=== PATIENT | female | born 1930 | race American Indian/Alaskan Native ===

== ENCOUNTER 2020-10-13 07:39 | Inpatient (IN) ==
[2020-10-13] MEDS ORDERED: IOPAMIDOL 100 ML BOTTLE IV ONE ×2 (07:40→20:43)
[2020-10-13] MEDS ORDERED: DILTIAZEM 25 MG/5 ML VIAL IV ONE (08:05)
[2020-10-13] MEDS ORDERED: FUROSEMIDE 20 MG/2 ML VIAL IV ONE (08:11)
[2020-10-13] MEDS ORDERED: DILTIAZEM 125 MG in 0.9 % SODIUM CHLORIDE 100 ML IV SCH (08:15)
[2020-10-13] MEDS ORDERED: ENOXAPARIN 100 MG/ML SYRINGE SQ SCH (08:15)
--- NOTE | 2020-10-13 08:24 | Emergency Department Note ---
Arrhythmia/Palpitations HPI General Chief Complaint: Arrhythmia/Palpitations Stated Complaint: fast heart rate,short of breath Time Seen by Provider: 10/13/20 07:45 Mode of arrival: ambulatory History of Present Illness HPI Narrative: Narrative: Patient presents to room T8 for evaluation of chest tightness, shortness of breath and rapid heart rate. The patient does report a past medical history of atrial fibrillation. The patient was seen in the emergency department approximately 8 hours ago at which time she was diagnosed with atrial fibrillation with rapid ventricular response as well as pulmonary edema on chest x-ray. She was given IV diltiazem and her symptoms improved. The patient also had apixaban and digoxin ordered but did not receive these. At that time the patient refused admission to the hospital. She now returns with chest tightness and shortness of breath and a rapid heart rate. The symptoms are constant. She denies any exacerbating or alleviating factors. She is now willing to be admitted to the hospital Related Data Home Medications Medication Instructions Recorded Confirmed acetaminophen 325 mg PO Q4-6HP PRN 05/10/15 10/13/20 alendronate 70 mg PO WEEKLY 05/10/15 10/13/20 aspirin 81 mg PO 2-3XW PRN 05/10/15 10/13/20 atorvastatin 20 mg PO HS 05/10/15 10/13/20 ergocalciferol (vitamin D2) 50,000 unit PO Q14D 06/08/18 10/13/20 clopidogrel 75 mg tablet 75 mg PO QDAY 08/06/19 10/13/20 torsemide 20 mg tablet 10 mg PO QDAY tab 08/06/19 10/13/20 multivitamin 1 tab PO QDAY 09/12/19 10/13/20 carvedilol 3.125 mg PO BID 10/13/20 10/13/20 insulin detemir U-100 [Levemir 15 unit SUBCUT QPM 10/13/20 10/13/20 FlexTouch U-100 Insuln] insulin detemir U-100 [Levemir 22 unit SUBCUT AC 10/13/20 10/13/20 FlexTouch U-100 Insuln] Previous Rx's Medication Instructions Recorded apixaban [Eliquis] 2.5 mg PO BID #30 tab 10/13/20 Allergies Allergy/AdvReac Type Severity Reaction Status Date / Time diphenhydramine Allergy Unknown Unknown Verified 10/13/20 13:43 gemfibrozil Allergy Unknown Unknown Verified 10/13/20 13:43 lisinopril Allergy Unknown Unknown Verified 10/13/20 13:43 pioglitazone Allergy Unknown Unknown Verified 10/13/20 13:43 pseudoephedrine Allergy Unknown Unknown Verified 10/13/20 13:43 sertraline AdvReac Unknown Unknown Verified 10/13/20 13:43 Bandaid AdvReac Mild Redness of Uncoded 10/13/20 13:44 Skin Review of Systems ROS ROS Narrative: Narrative: All systems ED: reviewed and negative except as stated. [facility] Narrative Patient History Narrative: Narrative: Medical/Surgical/Family History All Active Problems (Updated 10/13/20 @ 09:09 by Bry Rothman MD) Cellulitis of great toe, right (Acute) Diabetic skin ulcer associated with type 2 diabetes mellitus (Acute) Atrial fibrillation with RVR (Acute) Chest pain (Acute) Acute dyspnea (Acute) Peripheral vascular disease of foot (Chronic) Heart attack (Chronic ~08/08/97) Breast cancer (Chronic ~08/08/79) Cellulitis of right ankle (Chronic) Weight loss (Chronic) Non-healing surgical wound (Chronic) Hypoglycemia associated with type 2 diabetes mellitus (Chronic) Anemia due to blood loss (Chronic) MRSA (methicillin resistant staph aureus) culture positive (Chronic) Foot ulcer (Chronic) Osteoporosis (Chronic) Seasonal allergies (Chronic) Chronic congestive heart failure (Chronic) Peripheral arterial occlusive disease (Chronic) Poor short term memory (Chronic) Hematuria (Chronic) Lumbar spondylosis (Chronic) Onychomycosis (Chronic) Hyperlipemia (Chronic) Coronary atherosclerosis (Chronic) Proliferative diabetic retinopathy (Chronic) Renal hypertension (Chronic) Disorder of cardiac function (Chronic) CKD (chronic kidney disease), stage III (Chronic) Chronic pain (Chronic) Benign essential hypertension (Chronic) Vitamin D deficiency (Chronic) Stress incontinence (Chronic) Wound of left foot (Chronic) Shoulder pain (Chronic) Lumbago with sciatica (Chronic) Hypertensive disorder (Chronic) Cardiomyopathy (Chronic) PVD (peripheral vascular disease) (Chronic) Vitamin B 12 deficiency (Chronic) Pulmonary mass (Chronic) Diabetic neuropathy (Chronic) Bilateral carotid bruits (Chronic) Ischemic heart disease (Chronic) Diabetes mellitus, type II (Chronic) Heart & renal disease, 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) Gastroenteritis (Chronic) Hyponatremia (Chronic) CHF (congestive heart failure) (Chronic) Fall (Chronic) Skin tear of elbow without complication (Chronic) Medical History (Updated 10/13/20 @ 09:09 by Bry Rothman MD) Anemia due to blood loss Benign essential hypertension Bilateral carotid bruits Breast cancer (~08/08/79) Cardiomyopathy Cellulitis of right ankle Chronic congestive heart failure Chronic pain CKD (chronic kidney disease), stage III Coronary atherosclerosis Diabetes mellitus, type II Diabetic neuropathy Disorder of cardiac function Foot ulcer Gastroenteritis Heart & renal disease, hypertensive benign with chronic kidney disease Heart attack (~08/08/97) Hematuria Hyperlipemia Hypertensive disorder Hypoglycemia associated with type 2 diabetes mellitus Ischemic heart disease Lumbago with sciatica Lumbar spondylosis MRSA (methicillin resistant staph aureus) culture positive Non-healing surgical wound Onychomycosis Osteoporosis Peripheral arterial occlusive disease Peripheral vascular disease of foot Poor short term memory Proliferative diabetic retinopathy Pulmonary mass PVD (peripheral vascular disease) Renal hypertension Seasonal allergies Shoulder pain Stress incontinence Vitamin B 12 deficiency Vitamin D deficiency Weight loss Wound of left foot Surgical History (Updated 10/13/20 @ 15:16 by Laura Hobson MD) Hammer toe (~03/23/12) Right History of breast reconstruction (~08/08/11) History of cataract surgery Bilaterally History of cholecystectomy (~08/08/06) History of coronary artery bypass surgery History of femoropopliteal bypass Bilateral History of heart bypass surgery (~08/08/03) 5X History of mastectomy (~08/08/99) Right History of tonsillectomy Trigger finger (~09/14/11) 4th Right Family History Mother Diabetes Stroke Father Heart disease Grandmother Cancer Grandfather Cancer Other No pertinent family history Social History Smoking Status: Never smoker Exam Narrative Narrative: Narrative: General General appearance: Present alert and in no apparent distress Head Head: Present atraumatic, normocephalic and normal inspection Eye Eye: Present normal appearance and EOMI; Absent conjunctival injection ENT ENT: Present normal exam and mucous membranes moist Neck Neck: Present normal inspection and trachea midline Respiratory Respiratory: Present normal lung sounds bilaterally; Absent respiratory distress Cardiovascular Cardiovascular: Present tachycardia, irregular rhythm and normal heart sounds Adbominal Abdominal: Present soft; Absent distention, tenderness, guarding and rebound Extremities Extremities: Present normal inspection; Absent tenderness Back Back: Present normal inspection; Absent tenderness Neurological Neurological: Present alert, oriented X3 and CN II-XII intact; Absent motor sensory deficit Psychiatric Psychiatric: Present normal affect and normal mood Skin Skin: Present warm (WNL) and dry; Absent rash Course Vital Signs Vital signs: Vital Signs Temperature 96.0 F L 10/13/20 07:40 Pulse Rate 110 H 10/13/20 07:40 Respiratory Rate 26 H 10/13/20 07:40 Blood Pressure 153/117 10/13/20 07:40 Pulse Oximetry (%) 98 10/13/20 07:40 Temperature 97.2 F 10/13/20 12:31 Pulse Rate 82 10/13/20 16:01 Respiratory Rate 20 10/13/20 16:01 Blood Pressure 158/91 10/13/20 16:01 Pulse Oximetry (%) 92 10/13/20 16:01 [facility] MDM Narrative Medical decision making narrative: Narrative: Lab Data Lab results reviewed: Yes I reviewed the patient's lab results. Result diagrams: 10/13/20 19:41 10/13/20 19:40 Labs: Lab Results 10/13/20 10/13/20 10/13/20 Range/Units 08:06 08:06 08:06 WBC 11.4 H (4.5-11.0) K/mcL RBC 4.60 (4.00-5.20) M/mcL Hgb 13.1 (12.0-15.0) g/dL Hct 39.1 (36.0-48.0) % POC Hct 43 (36-48) % MCV 85.0 (80.0-100.0) fL MCH 28.5 (26.0-34.0) pg MCHC 33.5 (31.0-36.0) g/dL RDW 13.2 (11.5-14.5) % Plt Count 273 (140-440) K/mcL MPV 10.0 (7.4-10.4) fL Neut % (Auto) 92.3 H (38.0-78.0) % Lymph % (Auto) 4.8 L (15.0-49.0) % [place] % (Auto) 2.7 (1.0-12.0) % Eos % (Auto) 0 (0.0-7.0) % Baso % (Auto) 0.2 (0.0-2.0) % Lymph # (Auto) 0.55 L (1.50-4.80) K/mcL [place] # (Auto) 0.31 (0.10-0.90) K/mcL Eos # (Auto) 0 (0.00-0.70) K/mcL Baso # (Auto) 0.02 (0.00-0.20) K/mcL Absolute Neutrophils 10.47 H (1.80-8.00) K/mcL POC Sodium 120 L (133-145) mEq/L POC Potassium 4.7 (3.3-5.1) mEql/L POC Chloride 89 L (96-108) mEq/L POC Total CO2 20 L (22-30) mmol/L POC BUN 36 H (6-20) mg/dL POC Creatinine 1.4 H (0.6-1.2) mg/dL POC Glucose 299 H (70-105) mg/dL POC WB Ioniz Calcium 1.09 L (1.16-1.32) mmEq/L Troponin T 0.01 (<0.03) ng/mL TSH (0.27-5.01) uIU/mL 10/13/20 Range/Units 08:06 WBC (4.5-11.0) K/mcL RBC (4.00-5.20) M/mcL Hgb (12.0-15.0) g/dL Hct (36.0-48.0) % POC Hct (36-48) % MCV (80.0-100.0) fL MCH (26.0-34.0) pg MCHC (31.0-36.0) g/dL RDW (11.5-14.5) % Plt Count (140-440) K/mcL MPV (7.4-10.4) fL Neut % (Auto) (38.0-78.0) % Lymph % (Auto) (15.0-49.0) % [place] % (Auto) (1.0-12.0) % Eos % (Auto) (0.0-7.0) % Baso % (Auto) (0.0-2.0) % Lymph # (Auto) (1.50-4.80) K/mcL [place] # (Auto) (0.10-0.90) K/mcL Eos # (Auto) (0.00-0.70) K/mcL Baso # (Auto) (0.00-0.20) K/mcL Absolute Neutrophils (1.80-8.00) K/mcL POC Sodium (133-145) mEq/L POC Potassium (3.3-5.1) mEql/L POC Chloride (96-108) mEq/L POC Total CO2 (22-30) mmol/L POC BUN (6-20) mg/dL POC Creatinine (0.6-1.2) mg/dL POC Glucose (70-105) mg/dL POC WB Ioniz Calcium (1.16-1.32) mmEq/L Troponin T (<0.03) ng/mL TSH 2.89 (0.27-5.01) uIU/mL ED POC Tests ED POC Tests: DEANNE - Influenza A Negative DEANNE - Influenza B Negative DEANNE - SARS Antigen Negative Radiology Data Radiology results reviewed: Yes I reviewed the patient's radiology results. Radiology results narrative: Pulmonary edema EKG Data EKG #1: EKG attestation: Yes I reviewed and interpreted this EKG. EKG results narrative: Rate 126, atrial fibrillation with rapid ventricular response, right bundle branch block and left posterior fascicular block nonspecific ST-T wave abnormalities with undetermined clinical significance CC TIME Critical Care Time Critical Care Time: Yes Total Critical Care Time: 30 Attestation: I personally attended the patient for 30 minutes due to cardiac instability being in atrial fibrillation with rapid ventricular response. The patient was treated with IV Cardizem, nitroglycerin paste as well as Lovenox. The patient was at risk for further cardiac decline due to her chest pain shortness of breath, dysrhythmia and pulmonary edema. The patient's condition improved after treatment. The patient does have hyponatremia at baseline. The patient also has chronic renal insufficiency. EKG showed no evidence of acute injury or ischemia. I did review the labs from the most recent visit [facility] 8 hours ago. Repeat labs show no appreciable change. I did discuss the case with the hospitalist, Dr. Llanes, for admission. I also spoke with the on- call rib cloth knitter, Dr. Mejia who agrees with plan. The patient did have some abdominal pain reported. A CT scan of the chest abdomen and pelvis has been ordered to be followed by the admitting team. Discharge Plan Patient/Caregiver Discharge Instructions Pt seen by [employer]LE CONTRACT CLERK/PA only: No Clinical Impression: Chest pain, Heart & renal disease, hypertensive benign with chronic kidney disease, Hyponatremia, CHF (congestive heart failure), Atrial fibrillation with RVR, Acute dyspnea Patient Disposition: Xfer As Inpt ([facility]) Condition: Fair Discharge Date/Time: 10/13/20 12:20
[2020-10-13] MEDS ORDERED: NITROGLYCERIN 1 GM OINT.TOP TD ONE (08:47)
[2020-10-13 08:48] LABS: POC Blood Urea Nitrogen 36 mg/dL (6-20); POC CO2 20 mmol/L (22-30); POC Calcium, Ionized 1.09 mmEq/L (1.16-1.32); POC Chloride 89 mEq/L (96-108); POC Creatinine 1.4 mg/dL (0.6-1.2); POC Glucose, Random 299 mg/dL (70-105); POC Hematocrit 43 % (36-48); POC Potassium 4.7 mEql/L (3.3-5.1); POC Sodium 120 mEq/L (133-145)
--- NOTE | 2020-10-13 08:50 | XRay Report ---
CLINICAL INFORMATION: dysrhythmia COMPARISON: 10/12/2020 FINDINGS: The heart is mildly enlarged - decreased from yesterday's exam. Mediastinum is unremarkable. Pulmonary vessels have decreased in caliber and now only minimally distended. Interstitial edema in both lungs has improved. Small bilateral pleural effusions are unchanged. IMPRESSION: Mild/moderate CHF - improving Interpreted and Authenticated by: Aleks Robles 10/13/20
[2020-10-13 08:57] LABS: Basophils # (Auto) 0.02 K/mcL (0.00-0.20); Basophils % (Auto) 0.2 % (0.0-2.0); Eosinophils # (Auto) 0 K/mcL (0.00-0.70); Eosinophils % (Auto) 0 % (0.0-7.0); Hematocrit 39.1 % (36.0-48.0); Hemoglobin 13.1 g/dL (12.0-15.0); Lymphocytes # (Auto) 0.55 K/mcL (1.50-4.80); Lymphocytes % (Auto) 4.8 % (15.0-49.0); Mean Corpuscular HGB Conc 33.5 g/dL (31.0-36.0); Monocytes # (Auto) 0.31 K/mcL (0.10-0.90); Monocytes % (Auto) 2.7 % (1.0-12.0); Neutrophils % (Auto) 92.3 % (38.0-78.0); Platelet Count 273 K/mcL (140-440); Red Cell Distribution Width 13.2 % (11.5-14.5); WBC 11.4 K/mcL (4.5-11.0)
--- NOTE | 2020-10-13 11:46 | Cat Scan Report ---
CLINICAL INFORMATION: Chest and abdomen pain COMPARISON: None. TECHNIQUE: Enteric contrast was utilized. 80 cc of Isovue-370 were injected intravenously, and 50 seconds later 2.5 mm helical slices were obtained from the lung apices through the subtrochanteric regions of the femurs. Following reconstruction, 2.5 mm sagittal, coronal and axial reformatted images were processed and reviewed at multiple windows and levels. 7 mm MIP reconstructions were obtained through the lungs to optimize nodule detection.The exam was performed using radiation dose optimization techniques including, but not limited to, automated exposure control, adjustment of the mA and/or kV according to patient size and use of iterative reconstruction technique. FINDINGS: Chest images show moderate right and small left pleural effusions with subsegmental atelectasis in both posterior lower lobes. In addition, there is mild distention of the pulmonary arterial vasculature and interstitial edema particularly in the interlobular regions. Mild patchy groundglass edema scattered throughout both lungs. Findings compatible with with moderate CHF. In addition, there are 2-3 foci of classic rounded atelectasis in the posterior left lower lobe ranging up to 3.5 cm. Mediastinal windows show the heart is moderately enlarged with extremely heavy calcific plaque in the coronary arteries. The pulmonary arteries are well-opacified, but no evidence of embolus. Thoracic aorta is normal diameter with diffuse atherosclerotic plaque. There are no abnormally enlarged lymph nodes the mediastinal hilar or axillary region. Small hiatal hernia noted. The thyroid is unremarkable. Abdominal images show the liver is slightly decreased in size and moderately heterogeneous which may be related to congestive hepatopathy from CHF. Gallbladder wall is normal thickness but there is mild pericholecystic fluid and there is also fluid in the perihepatic region. The intrahepatic and extrahepatic bile ducts are normal caliber - CBD is 6 mm. Both kidneys, adrenal glands, spleen and pancreas are normal. The aorta is normal diameter with very heavy atherosclerotic plaque. There is heavy atherosclerotic plaque in all of the aortic branches as well. No evidence of thrombus. Pelvic images show the uterus is slightly retroverted and normal postmenopausal 7.1 x 3 cm. There is a 3 cm submucosal fibroid in the uterus with scattered calcified fibroids throughout the uterus. Both ovaries regions are normal. The stomach and small bowel are grossly normal. Colon is incompletely distended but shows no gross abnormality. Bone windows show only degenerative change in the lumbar spine IMPRESSION: 1. Moderate CHF. Moderate right and small left pleural effusions 2. 3-4 foci of rounded atelectasis in the posterior left lower lobe 3. Heavy calcific plaque in the coronary arteries 4. Diminutive inhomogeneous liver which could indicate cirrhosis. Patient also may merely have congestive hepatopathy. Please correlate with LFTs and other history of chronic liver disease. 5. Small amount of ascites including the pericholecystic region. If the patient is septic, suggest gallbladder ultrasound to ensure the absence of cholecystitis. 6. 3 cm subserosal fibroid uterus. Other smaller calcified fibroids throughout the uterus. 7. Heavy calcific plaque in the origin of the celiac, SMA and NEELIMA artery. Patient may be at risk for mesenteric ischemia but no definite supportive evidence for active mesenteric ischemia Interpreted and Authenticated by: Aleks Robles 10/13/20
[2020-10-13] MEDS ORDERED: DEXTROSE 31 GM ORAL.SUSP PO PRN ×2 (12:27→20:43)
[2020-10-13] MEDS ORDERED: DEXTROSE 50% 50 ML VIAL IV PRN ×2 (12:27→20:43)
[2020-10-13] MEDS ORDERED: ACETAMINOPHEN 325 MG TABLET PO PRN ×2 (12:27→20:43)
[2020-10-13] MEDS ORDERED: LACTULOSE 20 GM/30 ML ORAL.SOL PO PRN ×2 (12:27→20:43)
[2020-10-13] MEDS ORDERED: ONDANSETRON 4 MG/2 ML VIAL IV PRN ×2 (12:27→20:43)
[2020-10-13] MEDS ORDERED: SENNOSIDES 1 TABLET PO PRN ×2 (12:27→20:43)
--- NOTE | 2020-10-13 12:56 | Internal Med History&Physical ---
HPI History of Present Illness Patient information: Note initiated : 10/13/20 at 12:54 pm Service Date, if different from initiated Date: [] Patient: Stephanie Montero 89 y/o F admitted on 10/13/20 for fast heart rate,short of breath. Chief Complaint: [] History of present illness: Ms. Montero is a 89 year old F with history of coronary disease, peripheral arterial disease, type 2 diabetes, chronic kidney disease, hypertension who represents the ED with dyspnea. She was seen about midnight, was found to be in atrial fibrillation with RVR. At that point she had had about 3 days of dyspnea. She received intravenous boluses of diltiazem, but wished to be discharged. She will eventually left AMA into the care of her family. She is provided prescription for digoxin and had been started on apixaban. She returns a few hours later due to worsening dyspnea. She is again found to be in rapid ventricular response, has been started on a diltiazem infusion. On representation, she later was complaining of some abdominal pain, which seemed to be a bit out of proportion to exam. She had CTA of the chest abdomen pelvis, no evidence of mesenteric ischemia or other embolic phenomenon. She did have significant body edema, small effusions and small amount of ascites consistent with heart failure. She is being admitted for further evaluation management of new onset atrial fibrillation and congestive heart failure. Patient complains of dyspnea, worse with exertion. She has had new lower extremity edema. She reports orthopnea but no PND. Abdomen feels bloated, but her appetite is okay. She said no chest pain/tightness/squeezing or palpitations. She has a history of coronary artery disease, status post CABG she thinks about 15 or 16 years ago with no subsequent IL. She is also had what appears to be femoropopliteal bypass bilaterally. Constitutional Constitutional: Absent chills, fever(s) and weakness EENT Eyes: Absent blurry vision and diplopia Nose, mouth and throat: Absent headache(s) and sore throat Cardiovascular Cardiovascular: Present as per HPI Respiratory Respiratory: Present as per HPI; Absent cough Gastrointestinal Gastrointestinal: Present bloating; Absent abdominal pain, nausea and vomiting Genitourinary Genitourinary: Absent dysuria Musculoskeletal Musculoskeletal: Absent joint swelling Integumentary Integumentary: Absent unusual bruising Neurological Neurological: Absent focal weakness and numbness Endocrine Endocrine: Present fatigue; Absent polydipsia Hematologic/Lymphatic Hematologic/Lymphatic: Absent easy bleeding PFSH PFSH All Active Problems (Updated 10/13/20 @ 09:09 by Bry Rothman MD) Cellulitis of great toe, right (Acute) Diabetic skin ulcer associated with type 2 diabetes mellitus (Acute) Atrial fibrillation with RVR (Acute) Chest pain (Acute) Acute dyspnea (Acute) Peripheral vascular disease of foot (Chronic) Heart attack (Chronic ~08/08/97) Breast cancer (Chronic ~08/08/79) Cellulitis of right ankle (Chronic) Weight loss (Chronic) Non-healing surgical wound (Chronic) Hypoglycemia associated with type 2 diabetes mellitus (Chronic) Anemia due to blood loss (Chronic) MRSA (methicillin resistant staph aureus) culture positive (Chronic) Foot ulcer (Chronic) Osteoporosis (Chronic) Seasonal allergies (Chronic) Chronic congestive heart failure (Chronic) Peripheral arterial occlusive disease (Chronic) Poor short term memory (Chronic) Hematuria (Chronic) Lumbar spondylosis (Chronic) Onychomycosis (Chronic) Hyperlipemia (Chronic) Coronary atherosclerosis (Chronic) Proliferative diabetic retinopathy (Chronic) Renal hypertension (Chronic) Disorder of cardiac function (Chronic) CKD (chronic kidney disease), stage III (Chronic) Chronic pain (Chronic) Benign essential hypertension (Chronic) Vitamin D deficiency (Chronic) Stress incontinence (Chronic) Wound of left foot (Chronic) Shoulder pain (Chronic) Lumbago with sciatica (Chronic) Hypertensive disorder (Chronic) Cardiomyopathy (Chronic) PVD (peripheral vascular disease) (Chronic) Vitamin B 12 deficiency (Chronic) Pulmonary mass (Chronic) Diabetic neuropathy (Chronic) Bilateral carotid bruits (Chronic) Ischemic heart disease (Chronic) Diabetes mellitus, type II (Chronic) Heart & renal disease, 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) Gastroenteritis (Chronic) Hyponatremia (Chronic) CHF (congestive heart failure) (Chronic) Fall (Chronic) Skin tear of elbow without complication (Chronic) Medical History (Updated 10/13/20 @ 09:09 by Bry Rothman MD) Anemia due to blood loss Benign essential hypertension Bilateral carotid bruits Breast cancer (~08/08/79) Cardiomyopathy Cellulitis of right ankle Chronic congestive heart failure Chronic pain CKD (chronic kidney disease), stage III Coronary atherosclerosis Diabetes mellitus, type II Diabetic neuropathy Disorder of cardiac function Foot ulcer Gastroenteritis Heart & renal disease, hypertensive benign with chronic kidney disease Heart attack (~08/08/97) Hematuria Hyperlipemia Hypertensive disorder Hypoglycemia associated with type 2 diabetes mellitus Ischemic heart disease Lumbago with sciatica Lumbar spondylosis MRSA (methicillin resistant staph aureus) culture positive Non-healing surgical wound Onychomycosis Osteoporosis Peripheral arterial occlusive disease Peripheral vascular disease of foot Poor short term memory Proliferative diabetic retinopathy Pulmonary mass PVD (peripheral vascular disease) Renal hypertension Seasonal allergies Shoulder pain Stress incontinence Vitamin B 12 deficiency Vitamin D deficiency Weight loss Wound of left foot Surgical History (Updated 10/13/20 @ 15:16 by Laura Hobson MD) Hammer toe (~03/23/12) Right History of breast reconstruction (~08/08/11) History of cataract surgery Bilaterally History of cholecystectomy (~08/08/06) History of coronary artery bypass surgery History of femoropopliteal bypass Bilateral History of heart bypass surgery (~08/08/03) 5X History of mastectomy (~08/08/99) Right History of tonsillectomy Trigger finger (~09/14/11) 4th Right Family History Mother Diabetes Stroke Father Heart disease Grandmother Cancer Grandfather Cancer Other No pertinent family history Social History (Updated 09/27/19 @ 15:53 by Akil Wang MD) marital status: smoking status: Never smoker MEDS/ALLERGIES Home Medications and Allergies Home Medications Medication Instructions Recorded Confirmed Type acetaminophen 325 mg PO Q4-6HP PRN 05/10/15 10/13/20 History alendronate 70 mg PO WEEKLY 05/10/15 10/13/20 History aspirin 81 mg PO 2-3XW PRN 05/10/15 10/13/20 History atorvastatin 20 mg PO HS 05/10/15 10/13/20 History ergocalciferol (vitamin D2) 50,000 unit PO Q14D 06/08/18 10/13/20 History clopidogrel 75 mg tablet 75 mg PO QDAY 08/06/19 10/13/20 History torsemide 20 mg tablet 10 mg PO QDAY tab 08/06/19 10/13/20 History multivitamin 1 tab PO QDAY 09/12/19 10/13/20 History apixaban [Eliquis] 2.5 mg PO BID #30 tab 10/13/20 10/13/20 Rx carvedilol 3.125 mg PO BID 10/13/20 10/13/20 History insulin detemir U-100 [Levemir 15 unit SUBCUT QPM 10/13/20 10/13/20 History FlexTouch U-100 Insuln] insulin detemir U-100 [Levemir 22 unit SUBCUT AC 10/13/20 10/13/20 History FlexTouch U-100 Insuln] Allergies Allergy/AdvReac Type Severity Reaction Status Date / Time diphenhydramine Allergy Unknown Unknown Verified 10/13/20 13:43 gemfibrozil Allergy Unknown Unknown Verified 10/13/20 13:43 lisinopril Allergy Unknown Unknown Verified 10/13/20 13:43 pioglitazone Allergy Unknown Unknown Verified 10/13/20 13:43 pseudoephedrine Allergy Unknown Unknown Verified 10/13/20 13:43 sertraline AdvReac Unknown Unknown Verified 10/13/20 13:43 Bandaid AdvReac Mild Redness of Uncoded 10/13/20 13:44 Skin EXAM Constitutional Vitals: Temp Pulse Resp BP Pulse Ox 97.2 F 80 23 H 158/85 100 10/13/20 12:31 10/13/20 12:02 10/13/20 12:31 10/13/20 12:31 10/13/20 12:31 GENERAL: Alert, oriented, in no acute distress. Cooperative, appears stated age. HEENT: Pupils equal at 2 mm, conjunctiva clear, no scleral icterus. Hearing grossly intact. Oropharynx with moist mucous membranes, tongue midline. NECK: Supple without meningismus, no thyromegaly RESPIRATORY: Few basal crackles bilaterally, otherwise clear with unlabored respirations. CARDIOVASCULAR: Irregular, tachycardic, no murmur appreciated. 1+ peripheral edema. Carotid pulses 2+. GI: Abdomen soft, nontender, no guarding or rebound. Bowel sounds are present. MUSCULOSKELETAL: No joint erythema or swelling, normal range of motion in all extremities. SKIN: Bilateral lower extremities are shiny with no hair. Well-healed medial scars bilaterally. NEUROLOGIC: Cranial nerves II through XII grossly intact. Muscle mass decreased. Strength 5/5 in the upper and lower extremities. Sensation intact to light touch decreased in the distal lower extremities. PSYCHIATRIC: Alert, oriented x3, normal mood and affect, normal insight. DATA Data Completed and Pending Labs: Labs from last 24 hours 10/13/20 10/13/20 10/13/20 08:06 08:06 08:06 WBC RBC Hgb Hct POC Hct 43 MCV MCH MCHC RDW Plt Count MPV Neut % (Auto) Lymph % (Auto) Weld % (Auto) Eos % (Auto) Baso % (Auto) Lymph # (Auto) Weld # (Auto) Eos # (Auto) Baso # (Auto) Absolute Neutrophils POC Sodium 120 L POC Potassium 4.7 POC Chloride 89 L POC Total CO2 20 L POC BUN 36 H POC Creatinine 1.4 H POC Glucose 299 H POC WB Ioniz Calcium 1.09 L Troponin T 0.01 TSH Pending 10/13/20 08:06 WBC 11.4 H RBC 4.60 Hgb 13.1 Hct 39.1 POC Hct MCV 85.0 MCH 28.5 MCHC 33.5 RDW 13.2 Plt Count 273 MPV 10.0 Neut % (Auto) 92.3 H Lymph % (Auto) 4.8 L Weld % (Auto) 2.7 Eos % (Auto) 0 Baso % (Auto) 0.2 Lymph # (Auto) 0.55 L Weld # (Auto) 0.31 Eos # (Auto) 0 Baso # (Auto) 0.02 Absolute Neutrophils 10.47 H POC Sodium POC Potassium POC Chloride POC Total CO2 POC BUN POC Creatinine POC Glucose POC WB Ioniz Calcium Troponin T TSH Imaging and Cardiology Chest x-ray: Status: image reviewed by me Additional comments: IMPRESSION: Mild/moderate CHF - improving CT scan - chest/abdomen/pelvis: Status: image reviewed by me Additional comments: IMPRESSION: 1. Moderate CHF. Moderate right and small left pleural effusions 2. 3-4 foci of rounded atelectasis in the posterior left lower lobe 3. Heavy calcific plaque in the coronary arteries 4. Diminutive inhomogeneous liver which could indicate cirrhosis. Patient also may merely have congestive hepatopathy. Please correlate with LFTs and other history of chronic liver disease. 5. Small amount of ascites including the pericholecystic region. If the patient is septic, suggest gallbladder ultrasound to ensure the absence of cholecystitis. 6. 3 cm subserosal fibroid uterus. Other smaller calcified fibroids throughout the uterus. 7. Heavy calcific plaque in the origin of the celiac, SMA and NEELIMA artery. Patient may be at risk for mesenteric ischemia but no definite supportive evidence for active mesenteric ischemia A/P Narrative A/P Narrative: #Atrial fibrillation rapid ventricular response: Patient is unaware of any prior history. Do not see this in review of her chart. She does have extensive history of vascular disease. Troponin is normal. -Failed outpatient management after she left AGAINST MEDICAL ADVICE with rate controlling agents and anticoagulants early this morning #Congestive heart failure: Patient with chronic systolic and diastolic heart failure, EF in 2018 was 25-30% with grade 3 diastolic dysfunction -Likely exacerbated by atrial fibrillation -Pulmonary edema on chest x-ray, evidence of anasarca small amount ascites and small effusions on CT #Coronary artery disease: No current symptoms, troponin negative #Type 2 diabetes mellitus #CKD stage III #Hypertension #Peripheral arterial disease without claudication symptoms Plan: * Inpatient admission * Diltiazem infusion * Titrate up carvedilol for rate control, prefer beta-carly with history of depressed EF * Recheck echocardiogram * Check TSH * Continue apixaban started in the ED for stroke prophylaxis * Continue aspirin * Discontinue clopidogrel now that apixaban is started (no history of recent stenting) * Continue insulin therapy * Accu-Cheks, sliding scale insulin, diabetic diet * Monitor renal function * Once rate control is achieved and blood pressure allows, may need further diuresis Prophylaxis: Apixaban CODE STATUS: Full code, discussed and confirmed with the patient
[2020-10-13] MEDS: INSULIN LISPRO 1 UNIT/0.01 ML UNIT SQ SCH ×3 (13:49→23:33)
[2020-10-13] MEDS ORDERED: 0.9 % SODIUM CHLORIDE 10 ML SYRINGE IV SCH ×2 (14:00→21:00)
[2020-10-13] MEDS ORDERED: CARVEDILOL 3.125 MG TABLET PO SCH (17:30)
[2020-10-13] MEDS ORDERED: CARVEDILOL 12.5 MG TABLET PO SCH (17:30)
[2020-10-13] MEDS ORDERED: PROPOFOL 1,000 MG in PREMIX 1 BAG IV ONE (19:28)
[2020-10-13] MEDS ORDERED: 0.9 % SODIUM CHLORIDE 10 ML SYRINGE IV PRN ×2 (19:32→20:43)
[2020-10-13] MEDS ORDERED: NOREPINEPHRINE BITARTRATE 4 MG/4 ML VIAL IV ONE (19:41)
[2020-10-13 19:49] LABS: POC Calcium, Ionized 0.94 mmEq/L (1.16-1.32); POC Creatinine 1.6 mg/dL (0.6-1.2); POC Potassium 4.3 mEql/L (3.3-5.1)
[2020-10-13 19:54] LABS: Basophils # (Auto) 0.04 K/mcL (0.00-0.20); Basophils % (Auto) 0.3 % (0.0-2.0); Eosinophils # (Auto) 0.01 K/mcL (0.00-0.70); Eosinophils % (Auto) 0.1 % (0.0-7.0); Hematocrit 38.3 % (36.0-48.0); Hemoglobin 12.8 g/dL (12.0-15.0); Lymphocytes # (Auto) 1.92 K/mcL (1.50-4.80); Lymphocytes % (Auto) 15.4 % (15.0-49.0); Mean Cell Volume 86.7 fL (80.0-100.0); Mean Corpuscular HGB Conc 33.4 g/dL (31.0-36.0); Monocytes # (Auto) 0.74 K/mcL (0.10-0.90); Monocytes % (Auto) 5.9 % (1.0-12.0); Neutrophils % (Auto) 78.3 % (38.0-78.0); Platelet Count 208 K/mcL (140-440); RBC 4.42 M/mcL (4.00-5.20); Red Cell Distribution Width 13.1 % (11.5-14.5); WBC 12.5 K/mcL (4.5-11.0)
[2020-10-13] MEDS ORDERED: NOREPINEPHRINE BITARTRATE 8 MG in 0.9 % SODIUM CHLORIDE 242 ML IV PRN ×2 (19:57→20:43)
[2020-10-13] MEDS ORDERED: 0.9 % SODIUM CHLORIDE 250 ML IV SCH (20:00)
--- NOTE | 2020-10-13 20:09 | Event Note ---
Event Note Event Note: Code 99 note Patient was awake shortly before 1900 hrs., went to the bathroom ambulating with assistance had a bowel movement. Seemed to be weak, came back was seen on the edge of the bed. At that point she developed bradycardia progressive to the point of losing her pulse. BREONNA CONTI was called at 1900 hrs. CPR started in 1900 hrs. and rhythm check after 2 cycles showed PEA. She received epinephrine 1 mg at 1905 hrs. with ROSC at 1906 hrs. Initial blood pressure was 132/93, pulse 91. Dr. Bry Rothman responded from the ED to assist in the code. After ROSC he intubated the patient at 1919 hrs. She received rocuronium 35 mg and midazolam 0.25 mg prior to intubation. She was starting to have spontaneous movement. Subsequently he placed a central line. Please see his documentation for the procedures. Patient received 12.5 mg of carvedilol at 1734 hrs. prior to the event in 1900 hrs. She has been rate controlled with this, had been off of diltiazem infusion for atrial fibrillation since approximately 1630. She voiced no complaints to her nurse who was at bedside when the event occurred. PE: VITALS: As above, subsequent systolic falling into the 90s maintaining MAP between 65 and 70 GENERAL: Few spontaneous movements after intubation, remains under the effect of rocuronium and midazolam RESPIRATORY: Clear bilateral breath sounds with good chest rise CARDIOVASCULAR: Irregular ABDOMEN: Distended, tympanic EXTREMITIES: Cool NEURO: Sedated, spontaneous movement of bilateral upper extremities Laboratory Results - last 24 hr 10/13/20 10/13/20 10/13/20 08:06 08:06 08:06 WBC 11.4 H RBC 4.60 Hgb 13.1 Hct 39.1 POC Hct 43 MCV 85.0 MCH 28.5 MCHC 33.5 RDW 13.2 Plt Count 273 MPV 10.0 Neut % (Auto) 92.3 H Lymph % (Auto) 4.8 L Prentiss % (Auto) 2.7 Eos % (Auto) 0 Baso % (Auto) 0.2 Lymph # (Auto) 0.55 L Prentiss # (Auto) 0.31 Eos # (Auto) 0 Baso # (Auto) 0.02 Absolute Neutrophils 10.47 H VBG Lactic Acid POC Sodium 120 L POC Potassium 4.7 POC Chloride 89 L POC Total CO2 20 L POC BUN 36 H POC Creatinine 1.4 H POC Glucose 299 H POC WB Ioniz Calcium 1.09 L Troponin T 0.01 TSH 10/13/20 10/13/20 10/13/20 08:06 19:40 19:41 WBC 12.5 H RBC 4.42 Hgb 12.8 Hct 38.3 POC Hct MCV 86.7 MCH 29.0 MCHC 33.4 RDW 13.1 Plt Count 208 MPV 10.0 Neut % (Auto) 78.3 H Lymph % (Auto) 15.4 Prentiss % (Auto) 5.9 Eos % (Auto) 0.1 Baso % (Auto) 0.3 Lymph # (Auto) 1.92 Prentiss # (Auto) 0.74 Eos # (Auto) 0.01 Baso # (Auto) 0.04 Absolute Neutrophils 9.75 H VBG Lactic Acid 5.4 H* POC Sodium POC Potassium POC Chloride POC Total CO2 POC BUN POC Creatinine POC Glucose POC WB Ioniz Calcium Troponin T TSH 2.89 10/13/20 10/13/20 19:41 19:41 WBC RBC Hgb Hct POC Hct 42 MCV MCH MCHC RDW Plt Count MPV Neut % (Auto) Lymph % (Auto) Prentiss % (Auto) Eos % (Auto) Baso % (Auto) Lymph # (Auto) Prentiss # (Auto) Eos # (Auto) Baso # (Auto) Absolute Neutrophils VBG Lactic Acid POC Sodium 120 L POC Potassium 4.3 POC Chloride 89 L POC Total CO2 18 L POC BUN 36 H POC Creatinine 1.6 H POC Glucose 231 H POC WB Ioniz Calcium 0.94 L Troponin T 0.02 TSH Post procedure chest x-ray: By my read, subclavian line in place, endotracheal tube above the irving, OG tube appears to end at the GE junction. Formal reading pending. Further adjustment to tubes and lines per radiologist review. Assessment: #Bradycardic arrest with PEA. Unclear etiology -No hypoxia prior to arrest -Sodium is 120 but no potassium or other significant electrolyte disorders -EKG without injury pattern, post event troponin is 0.02 -No evidence of significant pneumothorax on chest x-ray -Negative CTA study earlier in the day for PE, has been anticoagulated since -May represent a profound vaso-vagal event Plan: * Keep sedated in ICU tonight * Stat read on echo obtained earlier in the day * Propofol for sedation * Norepinephrine to maintain blood pressure if needed * Continue Accu-Cheks and diabetic management * Follow-up full set of labs * Trend troponin 35 minutes critical care time between 19:00 and 20:15 for new and significant change in status, independent of E&M activities at the time of admission earlier in the day
[2020-10-13 20:23] LABS: ALT/SGPT 42 U/L (<40); AST/SGOT 45 U/L (<32); Albumin 4.1 gm/dL (3.2-5.2); Albumin/Globulin Ratio 1.4 (1.0-2.3); Alkaline Phosphatase 65 U/L (39-117); Bilirubin,Direct 0.2 mg/dL (<0.3); Bilirubin,Total 0.7 mg/dL (0.1-1.0); Blood Urea Nitrogen 34 mg/dL (8-23); Calcium 8.4 mg/dL (8.6-10.4); Carbon Dioxide 14 mmol/L (22-30); Chloride 85 mmol/L (96-108); Globulin 2.9 gm/dL (2.2-3.7); Glomerular Filtration Rate 33; Glucose 234 mg/dL (70-105); Lactate Dehydrogenase 358 U/L (135-225); Phosphorous 4.5 mg/dL (2.5-4.5); Triglycerides 59 mg/dL (<150)
--- NOTE | 2020-10-13 20:37 | Emergency Department Note ---
HPI General Chief complaint: Arrhythmia/Palpitations Stated complaint: fast heart rate,short of breath Time Seen by Provider: 10/13/20 07:45 Source: patient and family Mode of arrival: ambulatory Limitations: no limitations History of Present Illness HPI Narrative: Narrative: Related Data Home Medications Medication Instructions Recorded Confirmed acetaminophen 325 mg PO Q4-6HP PRN 05/10/15 10/13/20 alendronate 70 mg PO WEEKLY 05/10/15 10/13/20 aspirin 81 mg PO 2-3XW PRN 05/10/15 10/13/20 atorvastatin 20 mg PO HS 05/10/15 10/13/20 ergocalciferol (vitamin D2) 50,000 unit PO Q14D 06/08/18 10/13/20 clopidogrel 75 mg tablet 75 mg PO QDAY 08/06/19 10/13/20 torsemide 20 mg tablet 10 mg PO QDAY tab 08/06/19 10/13/20 multivitamin 1 tab PO QDAY 09/12/19 10/13/20 carvedilol 3.125 mg PO BID 10/13/20 10/13/20 insulin detemir U-100 [Levemir 15 unit SUBCUT QPM 10/13/20 10/13/20 FlexTouch U-100 Insuln] insulin detemir U-100 [Levemir 22 unit SUBCUT AC 10/13/20 10/13/20 FlexTouch U-100 Insuln] Previous Rx's Medication Instructions Recorded apixaban [Eliquis] 2.5 mg PO BID #30 tab 10/13/20 Allergies Allergy/AdvReac Type Severity Reaction Status Date / Time diphenhydramine Allergy Unknown Unknown Verified 10/13/20 13:43 gemfibrozil Allergy Unknown Unknown Verified 10/13/20 13:43 lisinopril Allergy Unknown Unknown Verified 10/13/20 13:43 pioglitazone Allergy Unknown Unknown Verified 10/13/20 13:43 pseudoephedrine Allergy Unknown Unknown Verified 10/13/20 13:43 sertraline AdvReac Unknown Unknown Verified 10/13/20 13:43 Bandaid AdvReac Mild Redness of Uncoded 10/13/20 13:44 Skin Review of Systems ROS ROS Narrative: Narrative: PFSH Narrative Patient History Narrative: Narrative: Medical/Surgical/Family History All Active Problems (Updated 10/13/20 @ 09:09 by Bry Rothman MD) Cellulitis of great toe, right (Acute) Diabetic skin ulcer associated with type 2 diabetes mellitus (Acute) Atrial fibrillation with RVR (Acute) Chest pain (Acute) Acute dyspnea (Acute) Peripheral vascular disease of foot (Chronic) Heart attack (Chronic ~08/08/97) Breast cancer (Chronic ~08/08/79) Cellulitis of right ankle (Chronic) Weight loss (Chronic) Non-healing surgical wound (Chronic) Hypoglycemia associated with type 2 diabetes mellitus (Chronic) Anemia due to blood loss (Chronic) MRSA (methicillin resistant staph aureus) culture positive (Chronic) Foot ulcer (Chronic) Osteoporosis (Chronic) Seasonal allergies (Chronic) Chronic congestive heart failure (Chronic) Peripheral arterial occlusive disease (Chronic) Poor short term memory (Chronic) Hematuria (Chronic) Lumbar spondylosis (Chronic) Onychomycosis (Chronic) Hyperlipemia (Chronic) Coronary atherosclerosis (Chronic) Proliferative diabetic retinopathy (Chronic) Renal hypertension (Chronic) Disorder of cardiac function (Chronic) CKD (chronic kidney disease), stage III (Chronic) Chronic pain (Chronic) Benign essential hypertension (Chronic) Vitamin D deficiency (Chronic) Stress incontinence (Chronic) Wound of left foot (Chronic) Shoulder pain (Chronic) Lumbago with sciatica (Chronic) Hypertensive disorder (Chronic) Cardiomyopathy (Chronic) PVD (peripheral vascular disease) (Chronic) Vitamin B 12 deficiency (Chronic) Pulmonary mass (Chronic) Diabetic neuropathy (Chronic) Bilateral carotid bruits (Chronic) Ischemic heart disease (Chronic) Diabetes mellitus, type II (Chronic) Heart & renal disease, 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) Gastroenteritis (Chronic) Hyponatremia (Chronic) CHF (congestive heart failure) (Chronic) Fall (Chronic) Skin tear of elbow without complication (Chronic) Medical History (Updated 10/13/20 @ 09:09 by Bry Rothman MD) Anemia due to blood loss Benign essential hypertension Bilateral carotid bruits Breast cancer (~08/08/79) Cardiomyopathy Cellulitis of right ankle Chronic congestive heart failure Chronic pain CKD (chronic kidney disease), stage III Coronary atherosclerosis Diabetes mellitus, type II Diabetic neuropathy Disorder of cardiac function Foot ulcer Gastroenteritis Heart & renal disease, hypertensive benign with chronic kidney disease Heart attack (~08/08/97) Hematuria Hyperlipemia Hypertensive disorder Hypoglycemia associated with type 2 diabetes mellitus Ischemic heart disease Lumbago with sciatica Lumbar spondylosis MRSA (methicillin resistant staph aureus) culture positive Non-healing surgical wound Onychomycosis Osteoporosis Peripheral arterial occlusive disease Peripheral vascular disease of foot Poor short term memory Proliferative diabetic retinopathy Pulmonary mass PVD (peripheral vascular disease) Renal hypertension Seasonal allergies Shoulder pain Stress incontinence Vitamin B 12 deficiency Vitamin D deficiency Weight loss Wound of left foot Surgical History (Updated 10/13/20 @ 15:16 by Laura Hobson MD) Hammer toe (~03/23/12) Right History of breast reconstruction (~08/08/11) History of cataract surgery Bilaterally History of cholecystectomy (~08/08/06) History of coronary artery bypass surgery History of femoropopliteal bypass Bilateral History of heart bypass surgery (~08/08/03) 5X History of mastectomy (~08/08/99) Right History of tonsillectomy Trigger finger (~09/14/11) 4th Right Family History Mother Diabetes Stroke Father Heart disease Grandmother Cancer Grandfather Cancer Other No pertinent family history Social History Smoking Status: Never smoker Exam Narrative Narrative: Narrative: General Limitations: no limitations Course Vital Signs Vital signs: Vital Signs Temperature 96.0 F L 10/13/20 07:40 Pulse Rate 110 H 10/13/20 07:40 Respiratory Rate 26 H 10/13/20 07:40 Blood Pressure 153/117 10/13/20 07:40 Pulse Oximetry (%) 98 10/13/20 07:40 Temperature 97.2 F 10/13/20 12:31 Pulse Rate 82 10/13/20 16:01 Respiratory Rate 12 10/13/20 20:21 Blood Pressure 158/91 10/13/20 16:01 Pulse Oximetry (%) 100 10/13/20 20:21 [facility] MDM Narrative Medical decision making narrative: Narrative: Lab Data Result diagrams: 10/13/20 19:41 10/13/20 19:40 Labs: Lab Results 10/13/20 10/13/20 10/13/20 Range/Units 08:06 08:06 08:06 WBC 11.4 H (4.5-11.0) K/mcL RBC 4.60 (4.00-5.20) M/mcL Hgb 13.1 (12.0-15.0) g/dL Hct 39.1 (36.0-48.0) % POC Hct 43 (36-48) % MCV 85.0 (80.0-100.0) fL MCH 28.5 (26.0-34.0) pg MCHC 33.5 (31.0-36.0) g/dL RDW 13.2 (11.5-14.5) % Plt Count 273 (140-440) K/mcL MPV 10.0 (7.4-10.4) fL Neut % (Auto) 92.3 H (38.0-78.0) % Lymph % (Auto) 4.8 L (15.0-49.0) % [place] % (Auto) 2.7 (1.0-12.0) % Eos % (Auto) 0 (0.0-7.0) % Baso % (Auto) 0.2 (0.0-2.0) % Lymph # (Auto) 0.55 L (1.50-4.80) K/mcL [place] # (Auto) 0.31 (0.10-0.90) K/mcL Eos # (Auto) 0 (0.00-0.70) K/mcL Baso # (Auto) 0.02 (0.00-0.20) K/mcL Absolute Neutrophils 10.47 H (1.80-8.00) K/mcL POC Sodium 120 L (133-145) mEq/L POC Potassium 4.7 (3.3-5.1) mEql/L POC Chloride 89 L (96-108) mEq/L POC Total CO2 20 L (22-30) mmol/L POC BUN 36 H (6-20) mg/dL POC Creatinine 1.4 H (0.6-1.2) mg/dL POC Glucose 299 H (70-105) mg/dL POC WB Ioniz Calcium 1.09 L (1.16-1.32) mmEq/L Troponin T 0.01 (<0.03) ng/mL TSH (0.27-5.01) uIU/mL 10/13/20 Range/Units 08:06 WBC (4.5-11.0) K/mcL RBC (4.00-5.20) M/mcL Hgb (12.0-15.0) g/dL Hct (36.0-48.0) % POC Hct (36-48) % MCV (80.0-100.0) fL MCH (26.0-34.0) pg MCHC (31.0-36.0) g/dL RDW (11.5-14.5) % Plt Count (140-440) K/mcL MPV (7.4-10.4) fL Neut % (Auto) (38.0-78.0) % Lymph % (Auto) (15.0-49.0) % [place] % (Auto) (1.0-12.0) % Eos % (Auto) (0.0-7.0) % Baso % (Auto) (0.0-2.0) % Lymph # (Auto) (1.50-4.80) K/mcL [place] # (Auto) (0.10-0.90) K/mcL Eos # (Auto) (0.00-0.70) K/mcL Baso # (Auto) (0.00-0.20) K/mcL Absolute Neutrophils (1.80-8.00) K/mcL POC Sodium (133-145) mEq/L POC Potassium (3.3-5.1) mEql/L POC Chloride (96-108) mEq/L POC Total CO2 (22-30) mmol/L POC BUN (6-20) mg/dL POC Creatinine (0.6-1.2) mg/dL POC Glucose (70-105) mg/dL POC WB Ioniz Calcium (1.16-1.32) mmEq/L Troponin T (<0.03) ng/mL TSH 2.89 (0.27-5.01) uIU/mL ED POC Tests ED POC Tests: DEANNE - Influenza A Negative DEANNE - Influenza B Negative DEANNE - SARS Antigen Negative Procedures Intubation Time out performed: Yes sedative: Versed paralytic: Rocuronium Laryngoscope: Finn ET Tube Size: 7.5 ET Tube Uncuffed: No Tube Secured Depth (cm): 23 Tube Secured Location: lips Tube Placement Confirmation: visualized tube passing through cords, equal breath sounds bilaterally and no breath sounds over epigastrium Patient Tolerated Procedure: well Intubation Complications: none Other Procedure: Central line placement. Indication post cardiac resuscitation. Landmarks are identified over the right shoulder. The area was prepped with a Betadine prep. Using a Seldinger technique 2 Khmer central line with 4 ports was placed in the supraclavicular approach to the subclavian vein. Flash was obtained with one stick. Wire fed without difficulty and the line was placed without complications. Post line insertion chest x-ray demonstrated adequate line placement with no complications. All lines flushed and withdrawn without difficulty. Patient tolerated the procedure well Discharge Plan Patient/Caregiver Discharge Instructions Pt seen by INDUSTRY CONSULTANT/PA only: No Clinical Impression: Chest pain, Heart & renal disease, hypertensive benign with chronic kidney disease, Hyponatremia, CHF (congestive heart failure), Atrial fibrillation with RVR, Acute dyspnea Patient Disposition: Xfer As Inpt ([facility]) Condition: Fair Discharge Date/Time: 10/13/20 12:20
[2020-10-13] MEDS ORDERED: INSULIN GLARGINE, HUMAN 1 UNIT/0.01 ML SQ SCH ×2 (21:00)
[2020-10-13] MEDS ORDERED: DOCUSATE SODIUM 100 MG CAPSULE PO SCH (21:00)
[2020-10-13] MEDS ORDERED: ATORVASTATIN 20 MG TABLET PO SCH ×2 (21:00)
[2020-10-13] MEDS ORDERED: APIXABAN 5 MG TABLET PO SCH (21:00)
[2020-10-13] MEDS: 0.9 % SODIUM CHLORIDE 250 ML IV SCH (21:48)
[2020-10-13] MEDS: 0.9 % SODIUM CHLORIDE 10 ML SYRINGE IV SCH ×2 (21:49→23:11)
[2020-10-13] MEDS: CHLORHEXIDINE GLUCONATE 1 ML ORAL.SOL SWABMOUTH SCH (22:02)
[2020-10-13] MEDS: FAMOTIDINE/PF 20 MG/2 ML VIAL IV SCH (22:02)
[2020-10-13] MEDS: DOCUSATE SODIUM 100 MG CAPSULE PO SCH (22:15)
[2020-10-13] MEDS: APIXABAN 5 MG TABLET PO SCH (22:27)
[2020-10-13] MEDS ORDERED: fentaNYL 100 MCG/2 ML VIAL IV PRN (23:29)
[2020-10-13] MEDS ORDERED: ACETAMINOPHEN 650 MG/65 ML BAG IV PRN (23:29)
[2020-10-14] MEDS ORDERED: ALBUTEROL SULFATE 2.5 MG/3 ML NEBULIZER NEB PRN (01:34)
[2020-10-14] MEDS ORDERED: BUMETANIDE 0.25 MG/ML VIAL IV ONE (01:34)
[2020-10-14] MEDS ORDERED: IPRATROPIUM/ALBUTEROL 3 ML AMPUL.NEB NEB ONE (01:52)
[2020-10-14] MEDS ORDERED: ALBUTEROL SULFATE 2.5 MG/3 ML NEBULIZER ONE (01:54)
--- NOTE | 2020-10-14 02:16 | XRay Report ---
CLINICAL INFORMATION: Central Line Placement COMPARISON: 10/13/2020 FINDINGS: Right central line tip overlies the SVC/right atrial junction. Endotracheal tip is 3 cm above the irving in satisfactory position. NG tube tip overlies the GE junction. There is no pneumothorax and complication from line placement. The heart is moderately enlarged, but unchanged. Mediastinum is unremarkable. Pulmonary vessels show slight decrease in caliber but remain mildly distended. Diffuse interstitial edema and small pleural effusions unchanged IMPRESSION: 1. Right central line in satisfactory position no, dictation line placement. 2. Malpositioned NG tube tip overlying the GE junction. This should be advanced 15 cm 3. Mild CHF Interpreted and Authenticated by: Aleks Robles 10/14/20
[2020-10-14] MEDS: 0.9 % SODIUM CHLORIDE 10 ML SYRINGE IV SCH ×4 (06:08→16:16)
[2020-10-14] MEDS: INSULIN LISPRO 1 UNIT/0.01 ML UNIT SQ SCH ×3 (06:13→17:07)
[2020-10-14] MEDS ORDERED: PROPOFOL 100 ML IV ONE (06:55)
[2020-10-14] MEDS ORDERED: ROCURONIUM 10 MG/ML ML IV ONE (06:56)
[2020-10-14] MEDS ORDERED: PROPOFOL 1,000 MG in PREMIX 1 BAG IV ONE (07:25)
[2020-10-14] MEDS ORDERED: PANTOPRAZOLE 40 MG TABLET PO SCH ×2 (07:30)
[2020-10-14 07:52] LABS: ALT/SGPT 24 U/L (<40); AST/SGOT 29 U/L (<32); Albumin 2.5 gm/dL (3.2-5.2); Albumin/Globulin Ratio 1.4 (1.0-2.3); Alkaline Phosphatase 38 U/L (39-117); Bilirubin,Direct < 0.2 mg/dL (0-0.3); Bilirubin,Total 0.4 mg/dL (0.1-1.0); Blood Urea Nitrogen 40 mg/dL (8-23); Calcium 6.3 mg/dL (8.6-10.4); Carbon Dioxide 16 mmol/L (22-30); Chloride 96 mmol/L (96-108); Globulin 1.8 gm/dL (2.2-3.7); Glomerular Filtration Rate 37; Glucose 123 mg/dL (70-105); Lactate Dehydrogenase 329 U/L (135-225); Phosphorous 3.6 mg/dL (2.5-4.5); Triglycerides 103 mg/dL (<150); Uric Acid 6.3 mg/dL (2.5-8.0)
[2020-10-14] MEDS ORDERED: DILTIAZEM 125 MG in 0.9 % SODIUM CHLORIDE 100 ML IV SCH ×2 (08:00→10:00)
[2020-10-14 08:06] LABS: Basophils # (Auto) 0.02 K/mcL (0.00-0.20); Basophils % (Auto) 0.2 % (0.0-2.0); Eosinophils # (Auto) 0 K/mcL (0.00-0.70); Eosinophils % (Auto) 0 % (0.0-7.0); Hematocrit 19.2 % (36.0-48.0); Hemoglobin 6.1 g/dL (12.0-15.0); Lymphocytes # (Auto) 0.89 K/mcL (1.50-4.80); Lymphocytes % (Auto) 6.8 % (15.0-49.0); Mean Cell Volume 88.5 fL (80.0-100.0); Mean Corpuscular HGB Conc 31.8 g/dL (31.0-36.0); Mean Platelet Volume 10.2 fL (7.4-10.4); Monocytes # (Auto) 0.98 K/mcL (0.10-0.90); Monocytes % (Auto) 7.5 % (1.0-12.0); Neutrophils % (Auto) 85.5 % (38.0-78.0); Platelet Count 160 K/mcL (140-440); RBC 2.17 M/mcL (4.00-5.20); Red Cell Distribution Width 13.2 % (11.5-14.5); WBC 13.2 K/mcL (4.5-11.0)
[2020-10-14] MEDS ORDERED: MULTIVIT,THER IRON,CA,FA & MIN 1 TABLET PO SCH ×2 (09:00)
[2020-10-14] MEDS ORDERED: ASPIRIN 81 MG TAB.CHEW PO SCH ×2 (09:00)
[2020-10-14] MEDS ORDERED: CLOPIDOGREL 75 MG TABLET PO SCH (09:00)
[2020-10-14] MEDS ORDERED: INSULIN GLARGINE, HUMAN 1 UNIT/0.01 ML SQ SCH ×2 (09:00)
[2020-10-14] MEDS ORDERED: 0.9 % SODIUM CHLORIDE 250 ML IV SCH (09:30)
--- NOTE | 2020-10-14 09:38 | XRay Report ---
CLINICAL INFORMATION: Mechanically Ventilated COMPARISON: 10/13/2020 FINDINGS: Heart has decreased in size and is now only mildly enlarged. Central line and endotracheal tube remain in stable satisfactory position. NG tube tip remains malpositioned at the GE junction. Pulmonary vessels have returned to normal caliber. Interstitial edema is improved. Small bilateral pleural effusions persist. There is minor bibasilar atelectasis IMPRESSION: Interval resolution CHF. Malpositioned NG tube tip at the GE junction. Interpreted and Authenticated by: Aleks Robles 10/14/20
[2020-10-14] MEDS: 0.9 % SODIUM CHLORIDE 1,000 ML IV SCH ×3 (09:55→20:46)
[2020-10-14] MEDS: 0.9 % SODIUM CHLORIDE 250 ML IV SCH (10:32)
[2020-10-14] MEDS: DOCUSATE SODIUM 100 MG CAPSULE PO SCH (10:54)
[2020-10-14] MEDS: APIXABAN 5 MG TABLET PO SCH (10:54)
[2020-10-14] MEDS: FAMOTIDINE/PF 20 MG/2 ML VIAL IV SCH (10:59)
[2020-10-14] MEDS: CHLORHEXIDINE GLUCONATE 1 ML ORAL.SOL SWABMOUTH SCH (11:04)
--- NOTE | 2020-10-14 11:51 | Internal Med Progress Note ---
SUBJECTIVE Subjective Patient information: Note initiated : 10/14/20 at 11:46 am Service Date, if different from initiated Date: [] Patient: Stephanie Montero 89 y/o F admitted on 10/13/20 for fast heart rate,short of breath. Chief Complaint: f/u A fib, CHF, cardiac arrest Interval history: 10/13 MsSteffi Montero is a 89 year old F with history of coronary disease, peripheral arterial disease, type 2 diabetes, chronic kidney disease, hypertension who represents the ED with dyspnea. She was seen about midnight, was found to be in atrial fibrillation with RVR. At that point she had had about 3 days of dyspnea. She received intravenous boluses of diltiazem, but wished to be discharged. She will eventually left AMA into the care of her family. She is provided prescription for digoxin and had been started on apixaban. She returns a few hours later due to worsening dyspnea. She is again found to be in rapid ventricular response, has been started on a diltiazem infusion. On representation, she later was complaining of some abdominal pain, which seemed to be a bit out of proportion to exam. She had CTA of the chest abdomen pelvis, no evidence of mesenteric ischemia or other embolic phenomenon. She did have significant body edema, small effusions and small amount of ascites consistent with heart failure. She is being admitted for further evaluation management of new onset atrial fibrillation and congestive heart failure. 3/9 Events of last night outlined event note, developed bradycardia with pulseless arrest, with ROSC after 2 cycles of CPR and 1 dose of epinephrine. Was intubated overnight, easily extubated this morning. Awake and alert. Did pass some bloody stool last evening, has had more so this morning. Hemoglobin 6.1. At baseline on aspirin and clopidogrel. Apixaban has been ordered, but she had not received any. She did receive 60 mg of enoxaparin for her atrial fibrillation in the ED yesterday. Patient had been on norepinephrine for blood pressure support while on propofol. That is been weaned off she has good blood pressure. Mildly tachycardic with RVR, requiring diltiazem this morning. Pertinent ROS: Bloody BM as above Constitutional Vitals: Vital Signs Temp Pulse Resp BP Pulse Ox 96.9 F L 96 H 28 H 117/100 92 10/14/20 04:29 10/14/20 11:01 10/14/20 11:01 10/14/20 11:01 10/14/20 11:01 Period Temp Pulse Resp BP Sys/Lui Pulse Ox Last 24 Hr 96.8 F-97.2 F 46-119 12-34 81-175/33-129 85-100 Intake and Output 10/13/20 10/14/20 10/14/20 21:59 05:59 13:59 Intake Total 796 50 5973 Output Total 850 189 142 Balance -580 -97 1395 GENERAL: Intubated, alert, following commands when I see her RESPIRATORY: Coarse bilateral breath sounds, no rales, no wheezes CARDIOVASCULAR: Irregularly irregular ABDOMEN: Soft without apparent tenderness, bowel sounds present, no guarding EXTREMITIES: Distal extremities cool, loss of cutaneous structures, skin is shiny NEURO: Awake, alert, moving all extremities Intake & Output: Intake & Output 10/13/20 10/14/20 10/14/20 21:59 05:59 13:59 Intake Total 905 11 7871 Output Total 850 189 142 Balance -580 -97 1395 Intake: IV 30 62 1537 Sodium Chloride 0.9% 1,000 ml @ 992 100 mls/hr IV .Q10H [facility] Rx#: [id number] Sodium Chloride 0.9% 250 ml @ 250 20 mls/hr IV .[id number] [facility] Rx#: [id number] Cardizem 125 mg In Sodium 20 Chloride 0.9% 100 ml @ 5 MG/HR 5 mls/hr IV Q12H [facility] Rx#: [id number] Levophed 8 mg In Sodium 10 62 123 Chloride 0.9% 242 ml @ 10 MCG/ MIN 18.75 mls/hr IV PRN PRN Rx# :[id number] Diprivan 1,000 mg In Premix 1 107 Bag @ 25 MCG/KG/MIN 9.525 mls/ hr IV .[id number] ONE Rx#: [id number] Oral 240 Tube Feeding 30 0 Output: Urine Catheter Amount 100 189 142 Void Amount 750 Other: Meal Dinner Percent of Meal Consumed 25% Urine Appearance Clear Clear Clear Urine Color Straw Straw Straw Uretheral (Chakraborty) Bright Yellow Straw Stool Size Large Moderate Stool Color Brown Dark Red Blood Stool Consistency Soft Loose Formed # Voids 1 # Bowel Movements 1 # of times incontinent of 1 Bowels OBJ DATA Labs CBC & Chem 7: 10/14/20 05:57 10/14/20 05:57 Labs: Abnormal Lab Results 10/14/20 10/14/20 10/14/20 08:05 05:57 05:57 WBC 13.2 H RBC 2.17 L Hgb 6.1 L* Hct 19.2 L* Neut % (Auto) 85.5 H Lymph % (Auto) 6.8 L Lymph # (Auto) 0.89 L [place] # (Auto) 0.98 H Absolute Neutrophils 11.26 H VBG Lactic Acid POC Sodium Sodium 122 L POC Chloride Chloride Carbon Dioxide 16 L POC Total CO2 Anion Gap POC BUN BUN 40 H Creatinine 1.3 H POC Creatinine Glucose 123 H POC Glucose Calcium 6.3 L POC WB Ioniz Calcium Magnesium 1.5 L GGT AST ALT Alkaline Phosphatase 38 L Lactate Dehydrogenase 329 H Troponin T 0.05 H* Total Protein 4.3 L Albumin 2.5 L Globulin 1.8 L 10/14/20 10/13/20 10/13/20 02:07 19:41 19:41 WBC 12.5 H RBC Hgb Hct Neut % (Auto) 78.3 H Lymph % (Auto) Lymph # (Auto) [place] # (Auto) Absolute Neutrophils 9.75 H VBG Lactic Acid POC Sodium 120 L Sodium POC Chloride 89 L Chloride Carbon Dioxide POC Total CO2 18 L Anion Gap POC BUN 36 H BUN Creatinine POC Creatinine 1.6 H Glucose POC Glucose 231 H Calcium POC WB Ioniz Calcium 0.94 L Magnesium GGT AST ALT Alkaline Phosphatase Lactate Dehydrogenase Troponin T 0.05 H* Total Protein Albumin Globulin 10/13/20 10/13/20 10/13/20 19:40 19:40 08:06 WBC RBC Hgb Hct Neut % (Auto) Lymph % (Auto) Lymph # (Auto) [place] # (Auto) Absolute Neutrophils VBG Lactic Acid 5.4 H* POC Sodium 120 L Sodium 119 L* POC Chloride 89 L Chloride 85 L Carbon Dioxide 14 L POC Total CO2 20 L Anion Gap 20.0 H POC BUN 36 H BUN 34 H Creatinine 1.4 H POC Creatinine 1.4 H Glucose 234 H POC Glucose 299 H Calcium 8.4 L POC WB Ioniz Calcium 1.09 L Magnesium GGT 58 H AST 45 H ALT 42 H Alkaline Phosphatase Lactate Dehydrogenase 358 H Troponin T Total Protein Albumin Globulin 10/13/20 08:06 WBC 11.4 H RBC Hgb Hct Neut % (Auto) 92.3 H Lymph % (Auto) 4.8 L Lymph # (Auto) 0.55 L [place] # (Auto) Absolute Neutrophils 10.47 H VBG Lactic Acid POC Sodium Sodium POC Chloride Chloride Carbon Dioxide POC Total CO2 Anion Gap POC BUN BUN Creatinine POC Creatinine Glucose POC Glucose Calcium POC WB Ioniz Calcium Magnesium GGT AST ALT Alkaline Phosphatase Lactate Dehydrogenase Troponin T Total Protein Albumin Globulin Meds: Medications Acetaminophen (Acetaminophen 325 Mg Tablet) 650 mg PO Q6HP PRN; Protocol PRN Reason: Per Pain Protocol/Fever > 101 Albuterol Sulfate (Albuterol Sulfate 2.5 Mg/3 Ml Nebulizer) 2.5 mg NEB Q2HP PRN PRN Reason: Wheezing Last Admin: 10/14/20 01:46 Dose: 2.5 mg Documented by: Atorvastatin Calcium (Atorvastatin 20 Mg Tablet) 20 mg PO HS [facility] Last Admin: 10/13/20 22:59 Dose: 20 mg Documented by: Dextrose (Dextrose 50% 50 Ml Vial) 0 ml IV UD PRN PRN Reason: Hypoglycemia Diagnostic Test (Pha) (Accu-Chek 1 Each Strip) 1 each FS Q6 [facility] Last Admin: 10/14/20 06:07 Dose: 1 each Documented by: Docusate Sodium (Docusate Sodium 100 Mg Capsule) 100 mg PO BID [facility] Last Admin: 10/14/20 10:54 Dose: Not Given Documented by: Famotidine (Famotidine/Pf 20 Mg/2 Ml Vial) 20 mg IV Q12 [facility] Last Admin: 10/14/20 10:59 Dose: 20 mg Documented by: Fentanyl (Fentanyl 100 Mcg/2 Ml Vial) 25 mcg IV Q2HP PRN; Protocol PRN Reason: Per Pain Protocol Glucose (Dextrose 31 Gm Oral.Susp) 15 gm PO PRN PRN PRN Reason: Hypoglycemia Sodium Chloride (Sodium Chloride 0.9%) 250 mls @ 20 mls/hr IV .[id number] [facility] Last Admin: 10/14/20 10:32 Dose: 20 mls/hr Documented by: Norepinephrine Bitartrate 8 mg (/ Sodium Chloride) 250 mls @ 18.75 mls/hr IV PRN PRN; Protocol PRN Reason: Hypotension Last Titration: 10/14/20 10:10 Dose: 5 mcg/min, 9.375 mls/hr Documented by: Acetaminophen (Ofirmev) 650 mg in 65 mls @ 130 mls/hr IV Q6HP PRN; Protocol PRN Reason: PAIN/FEVER > 101 Last Infusion: 10/14/20 11:02 Dose: Infused Documented by: Sodium Chloride (Sodium Chloride 0.9%) 1,000 mls @ 100 mls/hr IV .Q10H [facility] Last Admin: 10/14/20 09:55 Dose: 100 mls/hr Documented by: Propofol 1,000 mg/ Premix 100 mls @ 9.525 mls/hr IV .[id number] ONE; Protocol Stop: 10/14/20 17:54 Last Titration: 10/14/20 08:35 Dose: Infused Documented by: Sodium Chloride (Sodium Chloride 0.9%) 250 mls @ 20 mls/hr IV .[id number] [facility] Stop: 10/14/20 21:59 Last Admin: 10/14/20 10:33 Dose: 20 mls/hr Documented by: Diltiazem HCl 125 mg/ Sodium (Chloride) 125 mls @ 5 mls/hr IV Q24H [facility]; Protocol Last Admin: 10/14/20 10:20 Dose: 5 mg/hr, 5 mls/hr Documented by: Pantoprazole Sodium 80 mg/ (Sodium Chloride) 100 mls @ 10 mls/hr IV Q10H [facility] Insulin Glargine (Insulin Glargine, Human 1 Unit/0.01 Ml) 15 unit SQ HS [facility] Last Admin: 10/13/20 22:02 Dose: 15 unit Documented by: Insulin Glargine (Insulin Glargine, Human 1 Unit/0.01 Ml) 22 unit SQ QAM [facility] Last Admin: 10/14/20 10:59 Dose: 22 unit Documented by: Insulin Human Lispro (Insulin Lispro 1 Unit/0.01 Ml Unit) 0 unit SQ Q6 [facility]; Protocol Last Admin: 10/14/20 06:13 Dose: 4 units Documented by: Iron Carb/Multivit/[place]/Folic Acid (Multivit,Ther Iron,Ca,Fa & Min 1 Tablet) 1 tab PO DAILY [facility] Last Admin: 10/14/20 10:54 Dose: Not Given Documented by: Lactulose (Lactulose 20 Gm/30 Ml Oral.Litzy) 10 gm PO DAILYP PRN PRN Reason: Constipation Ondansetron HCl (Ondansetron 4 Mg/2 Ml Vial) 4 mg IV Q4HP PRN; Protocol PRN Reason: Nausea And Vomiting Senna (Sennosides 1 Tablet) 2 tab PO HSP PRN PRN Reason: Constipation Sodium Chloride (0.9 % Sodium Chloride 10 Ml Syringe) 10 ml IV Q12 [facility] Last Admin: 10/14/20 10:32 Dose: 10 ml Documented by: Sodium Chloride (0.9 % Sodium Chloride 10 Ml Syringe) 10 ml IV Q8 [facility] Last Admin: 10/14/20 06:08 Dose: 10 ml Documented by: Sodium Chloride (0.9 % Sodium Chloride 10 Ml Syringe) 10 ml IV UD PRN PRN Reason: Hypotension A/P Narrative A/P Narrative: #Atrial fibrillation rapid ventricular response: Patient is unaware of any prior history. Do not see this in review of her chart. She does have extensive history of vascular disease. Troponin is normal. -Failed outpatient management after she left AGAINST MEDICAL ADVICE with rate controlling agents and anticoagulants early this morning #Congestive heart failure: Patient with chronic systolic and diastolic heart failure, EF in 2018 was 25-30% with grade 3 diastolic dysfunction -Likely exacerbated by atrial fibrillation -Pulmonary edema on chest x-ray, evidence of anasarca small amount ascites and small effusions on CT #Cardiac arrest: Became progressively bradycardic, then PEA. -No hypoxia prior to arrest -Sodium is 120 but no potassium or other significant electrolyte disorders -EKG without injury pattern, post event troponin is 0.02, then 0.05 and stable -No evidence of significant pneumothorax on chest x-ray -Negative CTA study earlier in the day for PE, has been anticoagulated since -May represent a profound vaso-vagal event #GI bleed: Some blood in OG tube, prior to placing on suction, suspected to be traumatic -Bloody BM, small last evening -Progressive bloody BMs today -Type and cross, transfusing 2 units with 2 units on reserve -We will also give FFP and platelets to counteract any lingering effects of aspirin, clopidogrel or enoxaparin -May need consult for endoscopy #Coronary artery disease: No current symptoms, troponin negative at admission, 0.05 after arrest and CPR #Type 2 diabetes mellitus #CKD stage III #Hypertension #Peripheral arterial disease without claudication symptoms Plan: * Type and cross, transfuse 2 units PRBC * Keep 2 units ahead * Transfuse 2 units FFP * Transfuse 1 unit platelets * Diltiazem for rate control as needed * Titrate up carvedilol for rate control, prefer beta-carly with history of depressed EF * Follow-up echocardiogram report * Check TSH * Discontinue apixaban, aspirin * Continue to hold clopidogrel (not started at admission) * Continue insulin therapy * Accu-Cheks, sliding scale insulin, diabetic diet * Monitor renal function * Once rate control is achieved and blood pressure allows, may need further diuresis Prophylaxis: Contraindicated due to GI bleed CODE STATUS: Full code, discussed and confirmed with the patient
[2020-10-14] MEDS ORDERED: PANTOPRAZOLE 80 MG in 0.9 % SODIUM CHLORIDE 100 ML IV SCH (12:00)
[2020-10-14] MEDS ORDERED: EPINEPHrine 1 MG/10 ML (1:10,000) SYRINGE IV ONE (12:14)
[2020-10-14 17:56] LABS: Hematocrit 20.2 % (36.0-48.0); Hemoglobin 6.9 g/dL (12.0-15.0)
--- NOTE | 2020-10-14 17:57 | Transfer Summary ---
Discharge Provider Provider Patient information: Note initiated : 10/14/20 at 5:53 pm Service Date, if different from initiated Date: [] Patient: Stephanie Montero 89 y/o F admitted on 10/13/20 for fast heart rate,short of breath. Chief Complaint: A. fib RVR/GI bleed Transfer diagnosis * Massive GI bleed with hypotension/blood loss anemia. Status post 2 cycles/1 dose epinephrine/2 units PRBC/FFP/platelets transfusion. No GI coverage. Surgery recommends emergent transfer to tertiary center for GI intervention/IR guided embolization if necessary. Continue serial hemoglobin/additional 4 units PRBC. * Cardiac arrest-initially bradycardic followed by [facility]. Status post CPR 2 minutes/ROSC. * Mechanical ventilation for airway protection extubated this morning following 12 hours of assist control. * Systolic congestive heart failure EF 20%. * A. fib RVR currently rate controlled * History of CAD, was on home aspirin Plavix. Currently on hold * Type II DM * CKD stage III * PAD with claudication symptoms * Full code Brief hospital course Ms. Montero is a 89 year old F with history of coronary disease, peripheral arterial disease, type 2 diabetes, chronic kidney disease, hypertension who represents the ED with dyspnea. She was seen about midnight, was found to be in atrial fibrillation with RVR. At that point she had had about 3 days of dyspnea. She received intravenous boluses of diltiazem, but wished to be discharged. She will eventually left AMA into the care of her family. She is provided prescription for digoxin and had been started on apixaban. She returns a few hours later due to worsening dyspnea. She is again found to be in rapid ventricular response, has been started on a diltiazem infusion. On representation, she later was complaining of some abdominal pain, which seemed to be a bit out of proportion to exam. She had CTA of the chest abdomen pelvis, no evidence of mesenteric ischemia or other embolic phenomenon. She did have significant body edema, small effusions and small amount of ascites consistent with heart failure. She is being admitted for further evaluation management of new onset atrial fibrillation and congestive heart failure. 3/9 Events of last night outlined event note, developed bradycardia with pulseless arrest, with ROSC after 2 cycles of CPR and 1 dose of epinephrine. Was intubated overnight, easily extubated this morning. Awake and alert. Did pass some bloody stool last evening, has had more so this morning. Hemoglobin 6.1. At baseline on aspirin and clopidogrel. Apixaban has been ordered, but she had not received any. She did receive 60 mg of enoxaparin for her atrial fibrillation in the ED yesterday. Patient had been on norepinephrine for blood pressure support while on propofol. That is been weaned off she has good blood pressure. Mildly tachycardic with RVR, requiring diltiazem this morning. 5:50 PM-patient continues to bleed. Hemoglobin up from 6.1-6.9 however remains symptomatic with hypotension. Additional 4 units PRBC/platelets infusion. Case discussed with surgery Dr. Taylor. Recommends immediate transfer to tertiary center due to high risk mortality in the setting of post cardiac arrest/20% EF and active bleed and lack of availability of resources at [facility]. Case discussed with [employer] worker Dr Sepulveda/transfer center on phone. Patient was accepted for further management and will be airlifted. At present patient is receiving another 2 units of packed red blood cell/2 pack platelets. Patient remains critically ill/high risk mortality. Date of admission: 10/13/20 12:15 Discharge date: 10/14/20 Primary care physician: Jackie Avery Consults: 10/13/20 08:24 Consult to Physician [CONS] Stat Comment: Consulting Provider: Laura Hobson Reason For Exam: Physician to Consult Discharge Meds Discharge Medications Home Medications acetaminophen 325 mg PO Q4-6HP PRN 05/10/15 [History Confirmed 10/13/20 Last Taken Unknown] alendronate 70 mg PO WEEKLY 05/10/15 [History Confirmed 10/13/20 Last Taken 10/12/20 08:00] aspirin 81 mg PO 2-3XW PRN 05/10/15 [History Confirmed 10/13/20 Last Taken 10/10/20 08:00] atorvastatin 20 mg PO HS 05/10/15 [History Confirmed 10/13/20 Last Taken 10/11/20 21:00] ergocalciferol (vitamin D2) 50,000 unit PO Q14D 06/08/18 [History Confirmed 10/13/20 Last Taken 09/27/20 08:00] clopidogrel 75 mg tablet 75 mg PO QDAY 08/06/19 [History Confirmed 10/13/20 Last Taken 10/11/20 08:00] torsemide 20 mg tablet 10 mg PO QDAY tab 08/06/19 [History Confirmed 10/13/20 Last Taken 10/11/20 08:00] multivitamin 1 tab PO QDAY 09/12/19 [History Confirmed 10/13/20 Last Taken 10/11/20 08:00] apixaban [Eliquis] 2.5 mg PO BID #30 tab 10/13/20 [Rx Confirmed 10/13/20 Last Taken Unknown] carvedilol 3.125 mg PO BID 10/13/20 [History Confirmed 10/13/20 Last Taken 10/11/20 08:00] insulin detemir U-100 [Levemir FlexTouch U-100 Insuln] 15 unit SUBCUT QPM 10/13/20 [History Confirmed 10/13/20 Last Taken 10/10/20 21:00] insulin detemir U-100 [Levemir FlexTouch U-100 Insuln] 22 unit SUBCUT AC 10/13/20 [History Confirmed 10/13/20 Last Taken 10/10/20 07:00] COURSE Hospital Course Hospital course: . Discharge diagnosis: GI Bleed Time Spent with Patient Time attestation: Total time spent providing and/or coordinating discharge services: EXAM Constitutional Vitals: Temp Pulse Resp BP Pulse Ox 96.9 F L 84 20 104/44 100 10/14/20 17:16 10/14/20 17:16 10/14/20 17:16 10/14/20 17:16 10/14/20 17:16 Discharge Data Data Completed and Pending Labs on day of discharge: Labs from last 24 hours 10/14/20 10/14/20 10/14/20 15:58 09:40 09:40 WBC RBC Hgb Pending Hct Pending POC Hct MCV MCH MCHC RDW Plt Count MPV Neut % (Auto) Lymph % (Auto) [place] % (Auto) Eos % (Auto) Baso % (Auto) Lymph # (Auto) [place] # (Auto) Eos # (Auto) Baso # (Auto) Absolute Neutrophils VBG Lactic Acid POC Sodium Sodium POC Potassium Potassium POC Chloride Chloride Carbon Dioxide POC Total CO2 Anion Gap POC BUN BUN Creatinine POC Creatinine GFR Calculation Glucose POC Glucose Uric Acid Calcium POC WB Ioniz Calcium Phosphorus Magnesium Total Bilirubin Direct Bilirubin GGT AST ALT Alkaline Phosphatase Lactate Dehydrogenase Troponin T Total Protein Albumin Globulin Albumin/Globulin Ratio Triglycerides Miscellaneous Test Pending Pending 10/14/20 10/14/20 10/14/20 09:40 08:05 08:05 WBC RBC Hgb Hct POC Hct MCV MCH MCHC RDW Plt Count MPV Neut % (Auto) Lymph % (Auto) [place] % (Auto) Eos % (Auto) Baso % (Auto) Lymph # (Auto) [place] # (Auto) Eos # (Auto) Baso # (Auto) Absolute Neutrophils VBG Lactic Acid 1.4 POC Sodium Sodium POC Potassium Potassium POC Chloride Chloride Carbon Dioxide POC Total CO2 Anion Gap POC BUN BUN Creatinine POC Creatinine GFR Calculation Glucose POC Glucose Uric Acid Calcium POC WB Ioniz Calcium Phosphorus Magnesium Total Bilirubin Direct Bilirubin GGT AST ALT Alkaline Phosphatase Lactate Dehydrogenase Troponin T 0.05 H* Total Protein Albumin Globulin Albumin/Globulin Ratio Triglycerides Miscellaneous Test Pending 10/14/20 10/14/20 10/14/20 05:57 05:57 02:07 WBC 13.2 H RBC 2.17 L Hgb 6.1 L* Hct 19.2 L* POC Hct MCV 88.5 MCH 28.1 MCHC 31.8 RDW 13.2 Plt Count 160 MPV 10.2 Neut % (Auto) 85.5 H Lymph % (Auto) 6.8 L [place] % (Auto) 7.5 Eos % (Auto) 0 Baso % (Auto) 0.2 Lymph # (Auto) 0.89 L [place] # (Auto) 0.98 H Eos # (Auto) 0 Baso # (Auto) 0.02 Absolute Neutrophils 11.26 H VBG Lactic Acid POC Sodium Sodium 122 L POC Potassium Potassium 4.5 POC Chloride Chloride 96 Carbon Dioxide 16 L POC Total CO2 Anion Gap 10.0 POC BUN BUN 40 H Creatinine 1.3 H POC Creatinine GFR Calculation 37 Glucose 123 H POC Glucose Uric Acid 6.3 Calcium 6.3 L POC WB Ioniz Calcium Phosphorus 3.6 Magnesium 1.5 L Total Bilirubin 0.4 Direct Bilirubin < 0.2 GGT 34 AST 29 ALT 24 Alkaline Phosphatase 38 L Lactate Dehydrogenase 329 H Troponin T 0.05 H* Total Protein 4.3 L Albumin 2.5 L Globulin 1.8 L Albumin/Globulin Ratio 1.4 Triglycerides 103 Miscellaneous Test 10/13/20 10/13/20 10/13/20 19:41 19:41 19:41 WBC 12.5 H RBC 4.42 Hgb 12.8 Hct 38.3 POC Hct 42 MCV 86.7 MCH 29.0 MCHC 33.4 RDW 13.1 Plt Count 208 MPV 10.0 Neut % (Auto) 78.3 H Lymph % (Auto) 15.4 [place] % (Auto) 5.9 Eos % (Auto) 0.1 Baso % (Auto) 0.3 Lymph # (Auto) 1.92 [place] # (Auto) 0.74 Eos # (Auto) 0.01 Baso # (Auto) 0.04 Absolute Neutrophils 9.75 H VBG Lactic Acid POC Sodium 120 L Sodium POC Potassium 4.3 Potassium POC Chloride 89 L Chloride Carbon Dioxide POC Total CO2 18 L Anion Gap POC BUN 36 H BUN Creatinine POC Creatinine 1.6 H GFR Calculation Glucose POC Glucose 231 H Uric Acid Calcium POC WB Ioniz Calcium 0.94 L Phosphorus Magnesium Total Bilirubin Direct Bilirubin GGT AST ALT Alkaline Phosphatase Lactate Dehydrogenase Troponin T 0.02 Total Protein Albumin Globulin Albumin/Globulin Ratio Triglycerides Miscellaneous Test 10/13/20 10/13/20 19:40 19:40 WBC RBC Hgb Hct POC Hct MCV MCH MCHC RDW Plt Count MPV Neut % (Auto) Lymph % (Auto) [place] % (Auto) Eos % (Auto) Baso % (Auto) Lymph # (Auto) [place] # (Auto) Eos # (Auto) Baso # (Auto) Absolute Neutrophils VBG Lactic Acid 5.4 H* POC Sodium Sodium 119 L* POC Potassium Potassium 4.6 POC Chloride Chloride 85 L Carbon Dioxide 14 L POC Total CO2 Anion Gap 20.0 H POC BUN BUN 34 H Creatinine 1.4 H POC Creatinine GFR Calculation 33 Glucose 234 H POC Glucose Uric Acid 7.0 Calcium 8.4 L POC WB Ioniz Calcium Phosphorus 4.5 Magnesium 2.0 Total Bilirubin 0.7 Direct Bilirubin 0.2 GGT 58 H AST 45 H ALT 42 H Alkaline Phosphatase 65 Lactate Dehydrogenase 358 H Troponin T Total Protein 7.0 Albumin 4.1 Globulin 2.9 Albumin/Globulin Ratio 1.4 Triglycerides 59 Miscellaneous Test Discharge Plan Patient/Caregiver Discharge Instructions Activity: other Diet: NPO Prescriptions: No Action clopidogrel 75 mg tablet 75 mg PO QDAY RF: 0 torsemide 20 mg tablet 10 mg PO QDAY RF: 0 multivitamin [Daily Multi-Vitamin] Tablet 1 tab PO QDAY RF: 0 acetaminophen 325 MG tablet 325 mg PO Q4-6HP PRN (Reason: pain) RF: 0 atorvastatin 20 MG tablet 20 mg PO HS RF: 0 alendronate 70 MG tablet 70 mg PO WEEKLY RF: 0 aspirin 81 MG tablet,delayed release (DR/EC) 81 mg PO 2-3XW PRN (Reason: Other) RF: 0 ergocalciferol (vitamin D2) 50,000 UNIT capsule 50,000 unit PO Q14D RF: 0 Eliquis 2.5 mg tablet 2.5 mg PO BID Qty: 30 RF: 0 carvedilol 3.125 mg Tablet 3.125 mg PO BID RF: 0 Levemir FlexTouch U-100 Insuln 100 unit/mL (3 mL) Insulin Pen 22 unit SUBCUT AC RF: 0 Levemir FlexTouch U-100 Insuln 100 unit/mL (3 mL) Insulin Pen 15 unit SUBCUT QPM RF: 0 Follow Up Plan Follow up with: Jackie Avery MD [Primary Care Provider] - Patient Disposition: [facility] Prognosis: Fair Rehab Potential: Critical I certify that the patient requires SNF services: No Overall status at discharge: patient is not back to baseline
[2020-10-14] MEDS ORDERED: OCTREOTIDE ACETATE 100 MCG/ML VIAL IV ONE (19:10)
== END 2020-10-14 19:55 | disposition short-term general hospital (02) | DRG 377 ==
LOC: ED 07:39 → ICU 12:15
PROVIDERS: ADMIT Internal Medicine; ATTEND Internal Medicine